=== PATIENT | male | born 1945 | race Caucasian/White ===

== ENCOUNTER → 2023-06-20 11:39 | Outpatient (REF) | payer MEDICARE, OTHER, SELFPAY | LOC: RAD 11:39 | PROVIDERS: ATTENDING PHYSICIAN Internal Medicine Hematology & Oncology; FAMILY PHYSICIAN Family Medicine | DX: R05.2 Subacute cough (principal) | CPT/HCPCS: 71046 ==

== ENCOUNTER → 2023-08-04 11:26 | Outpatient (REF) | payer MEDICARE, OTHER, SELFPAY | LOC: RAD 11:26 | PROVIDERS: ATTENDING PHYSICIAN Internal Medicine Hematology & Oncology; FAMILY PHYSICIAN Family Medicine | DX: C90.00 Multiple myeloma not having achieved remission (principal); T45.1X5A Adverse effect of antineoplastic and immunosuppressive drugs, initial encounter; D63.0 Anemia in neoplastic disease; C79.51 Secondary malignant neoplasm of bone; D84.89 Other immunodeficiencies; G89.29 Other chronic pain; Z51.11 Encounter for antineoplastic chemotherapy; S22.060S Wedge compression fracture of T7-T8 vertebra, sequela; D64.81 Anemia due to antineoplastic chemotherapy | CPT/HCPCS: 71046 ==

== ENCOUNTER 2023-12-26 18:46 | Emergency (ER) | payer MEDICARE, OTHER, SELFPAY ==
[2023-12-26 19:03] VITALS: BP 149/83
--- NOTE | 2023-12-26 19:03 | ED.GENMED ---
ED Provider Triage
<Deonte Hernandes PA-C - Last Filed: 12/26/23 19:16>
-
Patient seen by provider in Triage?: Seen in Triage
Attestation: A medical screening examination has been initiated by a qualified medical provider. Based on the assessment performed at this time, it has been determined that an emergent medical condition may exist and the patient has been informed
that further medical evaluation and possible additional diagnostic testing may be needed.
HPI: Patient sent to the emergency department by his oncologist for evaluation of right lower extremity edema and ecchymosis after patient injured his right lower leg on a golf cart earlier in the week. He notes that he had some type of large lump
over the affected area which is now just areas of erythema. Oncologist was concerned with the bruising and patient has a history of DVTs and wanted to ensure he did not have any reoccurring DVT.
GENERAL: Alert , in no apparent distress
EYE: No visual abnormalities.
NECK: Trachea midline
ENT: No visible abnormalities.
LUNGS: No acute respiratory distress
NEUROLOGICAL: Alert and oriented
SKIN: Skin intact. No visible changes.
MUSCULOSKELETAL: Moving extremities normally
PSYCH: Normal and appropriate interaction.
This is a medical evaluation conducted in person to initiate diagnostic evaluation and provide initial therapeutics. Please see further documentation by the treating clinician.
History of Present Illness
<Deonte Hernandes PA-C - Last Filed: 12/26/23 19:16>
General
Chief Complaint: DVT/Possible Blood Clot
Time Seen by Provider: 12/26/23 20:47
<Sophie Shirley MD - Last Filed: 12/26/23 21:59>
History of Present Illness
History of Present Illness:
Patient is a 78-year-old man with history of multiple myeloma presenting to the emergency department with leg swelling. Patient states about 8 days ago he hit his right leg and his golf cart. He noticed some bruising and some swelling. A few days
ago he did have some purulent drainage from it. Given the ongoing swelling he talked to his doctor who advised him to come in here to rule out blood clot. He is not currently on a blood thinner. Denies any numbness tingling. No weakness. No
fevers chills chest pain or shortness of breath. He is able to ambulate.
Past History
<Deonte Hernandes PA-C - Last Filed: 12/26/23 19:16>
Past History
ED Past Medical History: HTN, Hypercholesterolemia and Other (Multiple myeloma)
ED Past Surgical History: Appendectomy
Social History
Tobacco: Non-smoker
Alcohol: None
Drug: None
Personal:
Living: with family
Employment: Retired
Phy Exam
<Sophie Shirley MD - Last Filed: 12/26/23 21:59>
Physical Exam
Physical Exam:
GENERAL: in no acute distress
HEENT: normocephalic, extraocular movements intact, moist oral mucosa
NECK: normal inspection
RESPIRATORY: no respiratory distress, clear to auscultation bilaterally
CARDIOVASCULAR: regular rate and rhythm
ABDOMEN/: soft, non-distended, non-tender to palpation, no rebound or guarding
EXTREMITIES: Right lower extremity with mild swelling. Right anterior medial leg with area of erythema with warmth that is about 4 cm circular. There is central area of scabbing with some dried purulent drainage. There is fluctuance to the area.
Bruising to the medial malleolus. No focal tenderness
NEUROLOGIC: awake and alert, moves all extremities
SKIN: warm
Course
<Deonte Hernandes PA-C - Last Filed: 12/26/23 19:16>
Orders/Labs/Results
Orders:
Orders
12/26/23 19:04
US Periph Venous LOWER Ext RT Urgent
Comment:
Reason For Exam: edema, ecchymosis
12/26/23 21:51
Cephalexin Monohydrate [Keflex] 500 mg PO NOW STA
Sulfamethox./Trimethoprim Ds [Bactrim Ds 800 mg/160 mg] 1 tablet PO NOW STA
Vital Signs
Initial and Last Documented VS:
Initial Vital Signs
Temp Pulse Resp BP Pulse Ox
98.5 F 63 18 149/83 98
12/26/23 19:03 12/26/23 19:03 12/26/23 19:03 12/26/23 19:03 12/26/23 19:03
Last Documented Vital Signs
Temp Pulse Resp BP Pulse Ox
98.5 F 63 18 149/83 98
12/26/23 19:03 12/26/23 19:03 12/26/23 19:03 12/26/23 19:03 12/26/23 19:03
<Sophie Shirley MD - Last Filed: 12/26/23 21:59>
Orders/Labs/Results
Orders:
Orders
12/26/23 19:04
US Periph Venous LOWER Ext RT Urgent
Comment:
Reason For Exam: edema, ecchymosis
12/26/23 21:51
Cephalexin Monohydrate [Keflex] 500 mg PO NOW STA
Sulfamethox./Trimethoprim Ds [Bactrim Ds 800 mg/160 mg] 1 tablet PO NOW STA
Vital Signs
Initial and Last Documented VS:
Initial Vital Signs
Temp Pulse Resp BP Pulse Ox
98.5 F 63 18 149/83 98
12/26/23 19:03 12/26/23 19:03 12/26/23 19:03 12/26/23 19:03 12/26/23 19:03
Last Documented Vital Signs
Temp Pulse Resp BP Pulse Ox
98.5 F 63 18 149/83 98
12/26/23 19:03 12/26/23 19:03 12/26/23 19:03 12/26/23 19:03 12/26/23 19:03
Procedures
<Sophie Shirley MD - Last Filed: 12/26/23 21:59>
Incision/Drainage/Joint Aspiration
Right Leg:
Anethesia: 1% Lidocaine
Preparation: cleaned with Betadine
Type of procedure: incise and drain
Nature of site: abscess
Description of abscess: greater than 3cm
Loculations broken up: Yes
How much fluid was obtained?: small amount
Fluid description: purulent and blood tinged
Treatment: left open for drainage, antibiotics started and bandaid applied
<Sophie Shirley MD - Last Filed: 12/26/23 21:59>
MDM/Problems Addressed
Differential Diagnosis Includes:
Patient is a 78-year-old man presenting to the emergency department with right leg swelling for the past 8 days. Vitals here are unremarkable. Exam does show about a 4 cm circular erythematous fluctuant and warm abrasion with central scab with
some dried purulent drainage. Concern for cellulitis as well as an abscess. Less likely to be DVT. History and exam less likely suggest fracture. Ultrasound came prior to elevation is negative for DVT. I did complete a bedside I&D that did
drain some purulent fluid as well as some clots. I did irrigate the area. Area was then wrapped. I did discharge patient with antibiotics. First dose given here. Strict return precautions given.
<Sophie Shirley MD - Last Filed: 12/26/23 21:59>
*Critical Care Note
Total Time (30-74mins, 75-104mins- exclusive of procedures): Not Applicable
ED Attending Note
<Deonte Hernandes PA-C - Last Filed: 12/26/23 19:16>
-
Portions of this chart may have been created with voice recognition software.� Occasional wrong word or��sound alike� substitutions may have occurred due to the inherent limitations of voice recognition software.
Discharge Plan
Departure
Patient Disposition: Home (Routine Discharge)
Date of Disposition: 12/26/23
Time of Disposition: 21:52
Patient with high blood pressure during this ER visit?: No
Discharge Problem:
Cellulitis and abscess of leg
Instructions: Cellulitis (Skin Infection), Adult (DC)
Prescriptions:
New
cephalexin 500 mg capsule
500 mg PO QID 7 Days Qty: 28 0RF
sulfamethoxazole-trimethoprim [Bactrim DS] 800-160 mg tablet
1 tab PO BID 7 Days Qty: 14 0RF
No Action
simvastatin 20 MG tablet
40 mg PO QPM
minoxidil 10 MG tablet
10 mg PO QPM
labetalol 100 MG tablet
300 mg PO BID
doxazosin 2 MG tablet
2 mg PO HS
Acyclovir 400 MG Tablet
400 mg PO BID
aspirin 81 MG tablet,delayed release (DR/EC)
81 mg PO DAILY
ascorbic acid (vitamin C) [Vitamin C] 500 MG tablet
500 mg PO DAILY
montelukast 10 MG tablet
10 mg PO .BEFORE CHEMO
cholecalciferol (vitamin D3) 1,000 UNITS tablet
1,000 units PO DAILY
Wheat Grass
1 cap PO DAILY
apixaban [Eliquis DVT-PE Treat 30D Start] 5 MG tablets,dose pack
5 mg PO DIRECTED Qty: 1 0RF
Rx Instructions:
5 mg BID
Referrals:
Cheo Polo MD [Family Provider] -
Activity Restrictions/Additional Instructions:
You were seen in the Emergency Department today for a skin infection. While you were here we drained your abscess. Please take the antibiotic as prescribed.
We would like for you to follow up with your primary care physician for further evaluation. If you experience fever, worsening of your symptoms, or develop any other new or concerning symptoms, please return to the Emergency Department immediately.
Please see the attached sheet for additional information.
Interventions
Interventions:
*Risk Screen - Suicide Last Done: 12/26/23 18:49
*General Assessment Last Done: 12/26/23 19:03
*Neglect/Abuse Screening Last Done: 12/26/23 19:03
ED- Fall Risk Assessment Last Done: 12/26/23 21:06
*ED COVID-19 Vaccine History Last Done: 12/26/23 19:03
*Nursing Disposition Last Done: 12/26/23 21:58
ED- Cardiac Assessment Last Done: 12/26/23 21:06
ED- Pulmonary Assessment Last Done: 12/26/23 21:06
ED-Peripheral Vascular Assessment Last Done: 12/26/23 21:07
ED-Skin Assessment Last Done: 12/26/23 21:06
Discharge Date and Time
Print Language: GEORGIAN
[2023-12-26 21:57] VITALS: BP 164/72
[2023-12-26] MEDS: BACTRIM DS 800 MG/160 MG 1 TABLET PO (22:01)
[2023-12-26] MEDS: KEFLEX 500 MG PO (22:01)
== END 2023-12-26 22:16 | disposition home or self-care (01) ==
LOC: EMR 18:46
PROVIDERS: EMERGENCY PHYSICIAN Student in an Organized Health Care Education/Training Program; FAMILY PHYSICIAN Internal Medicine Hematology
DX: L03.115 Cellulitis of right lower limb (principal); L02.415 Cutaneous abscess of right lower limb; R60.0 Localized edema; S80.11XA Contusion of right lower leg, initial encounter; X58.XXXA Exposure to other specified factors, initial encounter; C90.00 Multiple myeloma not having achieved remission; E78.00 Pure hypercholesterolemia, unspecified; I10 Essential (primary) hypertension; Z86.718 Personal history of other venous thrombosis and embolism; Z90.49 Acquired absence of other specified parts of digestive tract
CPT/HCPCS: 99284; 10060; 93971